=== PATIENT | male | born 1970 | race Caucasian/White ===

== ENCOUNTER 2017-05-29 19:19 | Inpatient (IN) | payer OTHER ==
--- NOTE | 2017-05-29 19:53 | ED ---
General Adult HPI - General Chief complaint: Skin/Abscess/Foreign Body Stated complaint: Abcess Rt leg Time Seen by Provider: 05/29/17 19:37 Source: patient, family, RN notes reviewed Mode of arrival: ambulatory Limitations: no limitations - History of Present Illness Initial comments: Chief complaint history of present illness is a 46-year-old male with his . The patient was at a local urgent care and placed on Bactrim one tablet twice a day for cellulitis to the medial aspect distal right thigh. He reports since that has doubled in size and become more tender. It has been ongoing for approximately one week. Patient's temperature 101 - Related Data Home Medications Medication Instructions Recorded Confirmed Sulfamethox-Tmp 800-160Mg [Bactrim 1 tab PO BID 05/29/17 05/29/17 DS 800-160 mg] Allergies Allergy/AdvReac Type Severity Reaction Status Date / Time No Known Allergies Allergy Verified 05/29/17 19:58 Review of Systems ROS Statement: Those systems with pertinent positive or pertinent negative responses have been documented in the HPI. Review of systems patient denies chills or shakes no headache no visual acuity changes no chest pain no shortness of breath no GI or problems. The patient does have eczema. Rather bad behind the proximal right calf. This may well be the source of his cellulitis to his medial distal right thigh. Patient denies ever having had MRSA in the past. All systems reviewed. Past medical problems COPD. Surgeries cardiac ablation for SVT 18 years ago with good success. Family history mother had bladder cancer. Patient denies ALLERGIES. He does smoke strongly encouraged to stop and he drinks alcohol socially. ROS Other: All systems not noted in ROS Statement are negative. Past Medical History Past Medical History: No Reported History Additional Past Medical History / Comment(s): SVT, BROKE A COLLAR BONE CHILD History of Any Multi-Drug Resistant Organisms: None Reported Past Surgical History: Ablation, Heart Catheterization Additional Past Surgical History / Comment(s): ABLATION IN 1998 Past Anesthesia/Blood Transfusion Reactions: No Reported Reaction Past Psychological History: ADD/ADHD, Anxiety, Depression, Panic Disorder Smoking Status: Current every day smoker Past Alcohol Use History: Occasional Past Drug Use History: None Reported - Past Family History Father Family Medical History: Hypertension Additional Family Medical History / Comment(s): ? HEART PROBLEMS Mother Family Medical History: Myocardial Infarction ([place]) Additional Family Medical History / Comment(s): AT AGE [address] General Exam - General Exam Comments Initial Comments: General: The patient is awake and alert, complaining of worsening cellulitis medial distal right thigh. Vital signs temperature 101 pulse 89 respiratory rate 20 pulse ox 98% room air blood pressure 168/72 Eye: Pupils are equal, round and reactive to light, extra-ocular movements are intact ; there is normal conjunctiva bilaterally. No signs of icterus. Ears, nose, mouth and throat: There are moist mucous membranes and no oral lesions. Neck: The neck is supple, Cardiovascular: There is a regular rate and rhythm. No murmur, rub or gallop is appreciated. Respiratory: Lungs are clear to auscultation, respirations are non-labored, breath sounds are equal. No wheezes, stridor, rales, or rhonchi. Gastrointestinal: Soft, non-distended, non-tender abdomen without masses or organomegaly noted. There is no rebound or guarding present. No CVA tenderness. Bowel sounds are unremarkable. Back: There is no tenderness to palpation in the midline. There is no obvious deformity. No rashes noted. Musculoskeletal: Red, hot, tender area distal medial right thigh. as well as a large area in the proximal posterior right calf and has eczema. Neurological: No complaint of any neuro deficits. Skin: The patient has eczema. It seems to be significantly irritated in the posterior aspect right calf and right popliteal area Limitations: no limitations Course Vital Signs 05/29/17 05/29/17 19:27 19:37 Temperature 98.9 F 101.1 F H Pulse Rate 89 Respiratory 20 Rate Blood Pressure 168/72 O2 Sat by Pulse 98 Oximetry Medical Decision Making - Medical Decision Making Medical decision making the patient's white count is 12.7 hemoglobin 14 hematocrit 41.9. Potassium 4.2 with a BUN 11 creatinine 0.91 and GFR greater than 60. Glucose 95. Patient's temperature 101.4 she received ibuprofen. The patient also received IV vancomycin. I discussed the case with Dr. Yeung, the patient's attending. Patient be admitted his service continued on vancomycin. - Lab Data Result diagrams: 05/29/17 20:08 05/29/17 20:08 Lab Results 05/29/17 05/29/17 Range/Units 20:08 20:08 WBC 12.7 H (3.8-10.6) k/uL RBC 4.63 (4.30-5.90) m/uL Hgb 14.5 (13.0-17.5) gm/dL Hct 41.9 (39.0-53.0) % MCV 90.6 (80.0-100.0) fL MCH 31.3 (25.0-35.0) pg MCHC 34.6 (31.0-37.0) g/dL RDW 12.9 (11.5-15.5) % Plt Count 249 (150-450) k/uL Neutrophils % 67 % Lymphocytes % 23 % Monocytes % 6 % Eosinophils % 2 % Basophils % 0 % Neutrophils # 8.5 H (1.3-7.7) k/uL Lymphocytes # 2.9 (1.0-4.8) k/uL Monocytes # 0.8 (0-1.0) k/uL Eosinophils # 0.2 (0-0.7) k/uL Basophils # 0.0 (0-0.2) k/uL Sodium 139 (137-145) mmol/L Potassium 4.2 (3.5-5.1) mmol/L Chloride 108 H (98-107) mmol/L Carbon Dioxide 21 L (22-30) mmol/L Anion Gap 10 mmol/L BUN 11 (9-20) mg/dL Creatinine 0.91 (0.66-1.25) mg/dL Est GFR (MDRD) Af Amer >60 (>60 ml/min/1.73 sqM) Est GFR (MDRD) Non-Af >60 (>60 ml/min/1.73 sqM) Glucose 95 (74-99) mg/dL Calcium 9.1 (8.4-10.2) mg/dL Total Bilirubin 0.2 (0.2-1.3) mg/dL AST 20 (17-59) U/L ALT 23 (21-72) U/L Alkaline Phosphatase 84 (38-126) U/L Total Protein 7.1 (6.3-8.2) g/dL Albumin 4.3 (3.5-5.0) g/dL Disposition Clinical Impression: Cellulitis of right leg Disposition: ADMITTED IP TO THIS HOSP Condition: Fair Referrals: Lukas Carlson Jr, DO [Primary Care Provider] - 1-2 days
[2017-05-29 20:28] LABS: Basophils % (A) 0 %; CH 32.7; CHCM 36.2; Eosinophils # (A) 0.2 k/uL (0-0.7); Eosinophils % (A) 2 %; HCT 41.9 % (39.0-53.0); HDW 2.33; HGB 14.5 gm/dL (13.0-17.5); Luc # (Auto) 0.29; Luc % (Auto) 2; Lymphocytes # (A) 2.9 k/uL (1.0-4.8); Lymphocytes % (A) 23 %; MCH 31.3 pg (25.0-35.0); MCHC 34.6 g/dL (31.0-37.0); MCV 90.6 fL (80.0-100.0); Mean Platelet Volume 7.5; Monocytes # (A) 0.8 k/uL (0-1.0); Monocytes % (A) 6 %; Neutrophils # (A) 8.5 k/uL (1.3-7.7); Neutrophils % (A) 67 %; RBC 4.63 m/uL (4.30-5.90); RDW 12.9 % (11.5-15.5); WBC 12.7 k/uL (3.8-10.6); WBC (Perox) 11.75
[2017-05-29 20:45] LABS: Anion Gap 10 mmol/L; Blood Urea Nitrogen 11 mg/dL (9-20); Carbon Dioxide 21 mmol/L (22-30); Chloride 108 mmol/L (98-107); Glucose 95 mg/dL (74-99); Potassium 4.2 mmol/L (3.5-5.1); Sodium 139 mmol/L (137-145)
[2017-05-29 20:46] LABS: ALT 23 U/L (21-72); AST 20 U/L (17-59); Alkaline Phosphatase 84 U/L (38-126); Calcium 9.1 mg/dL (8.4-10.2); Non-African American GFR(MDRD) >60 (>60 ml/min/1.73 sqM); Total Bilirubin 0.2 mg/dL (0.2-1.3); Total Protein 7.1 g/dL (6.3-8.2)
--- NOTE | 2017-05-29 20:53 | US ---
EXAMINATION TYPE: US venous doppler duplex LE RT DATE OF EXAM: 05/29/2017 8:38 PM COMPARISON: NONE CLINICAL HISTORY: Painful swelling distal medial right thigh. SIDE PERFORMED: Right TECHNIQUE: The lower extremity deep venous system is examined utilizing real time linear array sonog kareen with graded compression, doppler sonography and color-flow sonography. VESSELS IMAGED: External Iliac Vein (EIV) Common Femoral Vein Deep Femoral Vein Greater Saphenous Vein * Femoral Vein Popliteal Vein Small Saphenous Vein * Proximal Calf Veins (* superficial vessels) Right Leg: Negative for DVT No evidence of DVT right leg IMPRESSION: Normal exam. No evidence of deep venous thrombosis in the right leg.
[2017-05-29] MEDS ORDERED: IBUPROFEN 600 MG STARTER PACK 4 TAB BTL PO STA (21:39)
[2017-05-29] MEDS ORDERED: IV VANCOMYCIN PER PHARMACY 1 EACH MISC MISCELLANE PRN ×2 (21:39→22:27)
[2017-05-29] MEDS ORDERED: VANCOMYCIN 1,250 MG in SODIUM CHLORIDE 0.9% 250 ML IVPB ONE (22:00)
[2017-05-29] MEDS ORDERED: NALOXONE 0.4 MG/ML 1 ML VIAL IV PRN (22:27)
[2017-05-29] MEDS ORDERED: IBUPROFEN 400 MG TAB PO PRN (22:27)
[2017-05-29] MEDS ORDERED: HYDROcodone/APAP 5-325MG 1 EACH TAB PO PRN (22:27)
[2017-05-29] MEDS ORDERED: FAMOTIDINE 20 MG/2 ML VIAL IV STA (23:08)
[2017-05-29] MEDS ORDERED: diphenhydrAMINE 50 MG/ML 1 ML VIAL IVP STA ×2 (23:08→23:14)
[2017-05-29] MEDS: SODIUM CHLORIDE 0.9% 1,000 ML IV SCH (23:17)
[2017-05-29] MEDS: CLINDAMYCIN 600 MG in DEXTROSE 5% IN WATER 50 ML IVPB SCH ×2 (23:54)
[2017-05-30 05:19] VITALS: BMI 18.7
[2017-05-30] MEDS ORDERED: VANCOMYCIN 1,250 MG in SODIUM CHLORIDE 0.9% 250 ML IVPB SCH (08:00)
[2017-05-30] MEDS ORDERED: ONDANSETRON 4 MG/2 ML VIAL IVP PRN (08:37)
[2017-05-30] MEDS ORDERED: ACETAMINOPHEN TAB 325 MG TAB PO PRN (08:38)
[2017-05-30] MEDS: CLINDAMYCIN 600 MG in DEXTROSE 5% IN WATER 50 ML IVPB SCH ×6 (08:46→23:32)
[2017-05-30] MEDS: FAMOTIDINE 20 MG TAB PO SCH ×2 (11:19→20:11)
[2017-05-30] MEDS: SODIUM CHLORIDE 0.9% 1,000 ML IV SCH ×2 (11:20→20:11)
--- NOTE | 2017-05-30 11:29 | P.HPIM ---
History of Present Illness H&P Date: 05/30/17 Chief Complaint: Cellulitis This is a 46 year old male patient who presented to the ER on 05-29-17 due to increased pain, redness, and swelling of his right medial thigh. The patient states he went to urgent care about a week ago and was placed on Bactrim. He states the area continued to get more tender and increased in size and the swelling increased as well. He decided to come to the emergency room last night for evaluation. The patient has a history of COPD, heart ablation for SVT, and tobacco abuse. In the emergency room the patient was placed on vancomycin IV. During administration of the vancomycin the patient experienced an ALLERGIC reaction at the IV site. The patient was given Benadryl IV. Vancomycin was discontinued and the patient was started on IV clindamycin. The patient states his thigh feels much better today. He states the swelling has decreased. He also states the pain and tenderness has significantly decreased as well. He states he was able to walk this morning which he could barely do yesterday because of the pain. Review of Systems Those systems with pertinent positive or pertinent negative responses have been documented in the HPI Past Medical History Past Medical History: No Reported History Additional Past Medical History / Comment(s): SVT, BROKE A COLLAR BONE CHILD History of Any Multi-Drug Resistant Organisms: None Reported Past Surgical History: Ablation, Heart Catheterization Additional Past Surgical History / Comment(s): ABLATION IN 1998 Past Anesthesia/Blood Transfusion Reactions: No Reported Reaction Past Psychological History: ADD/ADHD, Anxiety, Depression, Panic Disorder Additional Psychological History / Comment(s): TOOK PAXIL IN PAST Smoking Status: Current every day smoker Past Alcohol Use History: Occasional Additional Past Alcohol Use History / Comment(s): STARTED SMOKING AT AGE 15 1PPD , DRINKS ON WEEKENDS NOT MORE THAN 14 Past Drug Use History: None Reported - Past Family History Father Family Medical History: Hypertension Additional Family Medical History / Comment(s): ? HEART PROBLEMS Mother Family Medical History: Myocardial Infarction ([place]) Additional Family Medical History / Comment(s): AT AGE 63 MASSIVE [place] Medications and Allergies Home Medications Medication Instructions Recorded Confirmed Type Sulfamethox-Tmp 800-160Mg [Bactrim 1 tab PO BID 05/29/17 05/29/17 History DS 800-160 mg] Allergies Allergy/AdvReac Type Severity Reaction Status Date / Time vancomycin Allergy Intermediate Rash/Hives Verified 05/29/17 23:40 Physical Exam Vitals: Vital Signs Temp Pulse Pulse Resp BP BP Pulse Ox 05/30/17 08:50 69 16 05/30/17 07:55 97.8 F 69 16 110/67 97 05/30/17 00:00 16 05/29/17 23:50 97.9 F 57 L 16 106/59 97 05/29/17 23:41 98.9 F 73 16 150/68 98 05/29/17 19:37 101.1 F H 05/29/17 19:27 98.9 F 89 20 168/72 98 Intake and Output 05/29/17 05/30/17 05/30/17 22:59 06:59 14:59 Intake Total 300 Balance 300 Intake: Intake, IV Titration 240 Amount Sodium Chloride 0.9% 1, 240 000 ml @ 80 mls/hr IV . [id number] [facility] Rx#:[id number] Oral 60 Other: Weight 68.039 kg 68.039 kg Patient Weight 05/31/17 06:59 Weight 68.039 kg GENERAL: Alert and oriented. Appears in no acute distress. Pleasant. RESPIRATORY: Lungs clear bilaterally. No use of accessory muscles. Patient maintaining oxygen saturation greater than 92% on room air. CARDIOVASCULAR: S1 and S2 noted. No murmurs auscultated. No JVD noted. EXTREMITIES: No edema noted. Palpable pedal pulses +2. ABDOMEN: No distention noted. Abdomen soft and round. Normal active bowel sounds auscultated 4 quadrants. No pain or tenderness noted upon palpation. SKIN: Large reddened, warm area to right medial thigh. No drainage present. Slight tenderness noted to area upon palpation. Results CBC & Chem 7: 05/29/17 20:08 05/29/17 20:08 Labs: Abnormal Lab Results - Last 24 Hours (Table) 05/29/17 05/29/17 Range/Units 20:08 20:08 WBC 12.7 H (3.8-10.6) k/uL Neutrophils # 8.5 H (1.3-7.7) k/uL Chloride 108 H (98-107) mmol/L Carbon Dioxide 21 L (22-30) mmol/L Thrombosis Risk Factor Assmnt - Choose All That Apply Any of the Below Risk Factors Present?: Yes Each Factor Represents 1 point: Age 41-60 years Other Risk Factors: No Other congenital or acquired thrombophilia - If yes, enter type in comment: No Thrombosis Risk Factor Assessment Total Risk Factor Score: 1 Thrombosis Risk Factor Assessment Level: Low Risk Assessment and Plan Plan: ASSESSMENT: -Cellulitis of right thigh, present on admission, failed outpatient treatment -ALLERGIC reaction to vancomycin as patient developed rash/hives upon administration -History of supraventricular tachycardia, status post cardiac ablation in 1998 -Leukocytosis and febrile, present on admission, likely due to cellulitis of right thigh, meets SIRS criteria, possible early sepsis -History of COPD, no evidence of acute exacerbation -Nicotine dependence: Patient currently smokes cigarettes PLAN: -Continue clindamycin 600 mg IVPB every 8 hours -There are no home meds to resume -Continue IV hydration at 80 mL an hour -Continue heart healthy diet -Await results of blood cultures -Monitor labs. Will recheck in the AM. -GI prophylaxis: Pepcid 20 mg by mouth twice a day -DVT prophylaxis: Heparin 5000 units subcu every 8 hours -Monitor vital signs and address as appropriate The above impression and plan of care have been discussed and directed by signing physician. Roya Cornejo, nurse practitioner, acting as scribe for signing physician.
[2017-05-30] MEDS: HEPARIN SODIUM,PORCINE 5,000 UNIT/ML 1 ML VIAL SQ SCH ×2 (17:02→23:33)
[2017-05-31 07:13] LABS: Basophils % (A) 0 %; CH 31.7; CHCM 34.5; Eosinophils # (A) 0.3 k/uL (0-0.7); Eosinophils % (A) 3 %; HCT 41.7 % (39.0-53.0); HDW 2.46; HGB 14.2 gm/dL (13.0-17.5); Luc # (Auto) 0.24; Luc % (Auto) 3; Lymphocytes # (A) 2.1 k/uL (1.0-4.8); Lymphocytes % (A) 27 %; MCH 31.3 pg (25.0-35.0); MCV 92.1 fL (80.0-100.0); Mean Platelet Volume 7.1; Monocytes # (A) 0.5 k/uL (0-1.0); Monocytes % (A) 6 %; Neutrophils # (A) 4.7 k/uL (1.3-7.7); Neutrophils % (A) 60 %; RBC 4.53 m/uL (4.30-5.90); RDW 12.1 % (11.5-15.5); WBC 7.8 k/uL (3.8-10.6); WBC (Perox) 8.22
[2017-05-31 07:28] LABS: Anion Gap 9 mmol/L; Blood Urea Nitrogen 11 mg/dL (9-20); Calcium 9.5 mg/dL (8.4-10.2); Carbon Dioxide 22 mmol/L (22-30); Chloride 107 mmol/L (98-107); Glucose 95 mg/dL (74-99); Non-African American GFR(MDRD) >60 (>60 ml/min/1.73 sqM); Sodium 138 mmol/L (137-145)
[2017-05-31 07:46] VITALS: BP 125/67; PULSE 52; RESP 18; TEMP 98.4
[2017-05-31 07:46] LABS: Potassium 4.5 mmol/L (3.5-5.1)
[2017-05-31] MEDS: FAMOTIDINE 20 MG TAB PO SCH (08:33)
[2017-05-31] MEDS: CLINDAMYCIN 600 MG in DEXTROSE 5% IN WATER 50 ML IVPB SCH ×2 (08:33)
[2017-05-31] MEDS: HEPARIN SODIUM,PORCINE 5,000 UNIT/ML 1 ML VIAL SQ SCH (08:33)
--- NOTE | 2017-05-31 11:47 | P.DS ---
Providers Date of admission: 05/29/17 22:30 Expected date of discharge: 05/31/17 Attending physician: Lukas Carlson Primary care physician: Lukas Carlson [facility] Course: She was admitted with cellulitis to the medial aspect of the right thigh he's received IV antibiotic therapy for approximately 48 hours this is all but resolved General: [Patient awake, alert and oriented times 3. Patient in no acute distress.] HEENT: [PERRL. EOMI. No pharyngeal erythema or exudate.] Neck: [No adenopathy.] Cardiac: [Heart regular in rate and rhythm. No S3. No S4. No clicks, rubs. No murmur.] Lungs: [Clear to auscultation bilaterally.] Abdomen: [No mass. No organomegaly. Bowel sounds presnt and normoactive in all 4 quadrants.] Extremes: [No edema no cyanosis no claudication normal pulses] mild patch of cellulitis approximately half centimeter by centimeter with no evidence of abscess : [] Musculoskeletal: [No joint erythema, edema or tenderness.] Skin: [No rash.] Neurologic: [No lateralizing deficits. CN II - XII grossly intact.] Lymphatic: [No adenopathy.] Patient Condition at Discharge: Good Plan - Discharge Summary New Discharge Prescriptions: New Clindamycin HCl [Cleocin] 300 mg PO Q8H #30 cap No Action Sulfamethox-Tmp 800-160Mg [Bactrim DS 800-160 mg] 1 tab PO BID Discharge Medication List Sulfamethox-Tmp 800-160Mg [Bactrim DS 800-160 mg] 1 tab PO BID 05/29/17 [History ] Clindamycin HCl [Cleocin] 300 mg PO Q8H #30 cap 05/31/17 [Rx] Follow up Appointment(s)/Referral(s): Lukas Carlson Jr, [Primary Care Provider] - 1-2 days
== END 2017-05-31 13:20 | disposition home or self-care (01) | DRG 603 ==
LOC: EC 19:19 → 5MS5E 22:30
PROVIDERS: ADMIT Family Medicine; ATTEND Family Medicine
DX: L03.115 Cellulitis of right lower limb (principal); T36.8X5A Adverse effect of other systemic antibiotics, initial encounter; R21 Rash and other nonspecific skin eruption; J44.9 Chronic obstructive pulmonary disease, unspecified; F17.210 Nicotine dependence, cigarettes, uncomplicated; F41.0 Panic disorder [episodic paroxysmal anxiety]; F90.9 Attention-deficit hyperactivity disorder, unspecified type; Y92.230 Patient room in hospital as the place of occurrence of the external cause
CPT/HCPCS: 36415; 80048; 80053; 85025; 87040; 96365; 96375; 99284

== ENCOUNTER 2017-09-24 20:33 | Emergency (ER) | payer OTHER ==
[2017-09-24] MEDS ORDERED: DIPH,PERTUS(ACELL)TETVAC-LF 0.5 ML VIAL IM ONE (20:44)
--- NOTE | 2017-09-24 21:03 | XR ---
PROCEDURE: XR hand complete LT 3 views DATE AND TIME: 09/24/2017 8:54 PM REFERRING PHYSICIAN: Charo Bhatt CLINICAL INDICATION: PHH, Pain. Cystic Knipe first digit laceration. TECHNIQUE: Department protocol. COMPARISON: None FINDINGS: There is no fracture or malalignment. The soft tissues are unremarkable, without soft tissu e emphysema or radiopaque foreign body. IMPRESSION: NO ACUTE PROCESS.
--- NOTE | 2017-09-24 21:05 | ED ---
General Adult HPI - General Chief complaint: Wound/Laceration Stated complaint: hand lac Time Seen by Provider: 09/24/17 20:40 Source: patient, RN notes reviewed Mode of arrival: ambulatory - History of Present Illness Initial comments: 47-year-old male presents to the emergency department with a chief complaint of left hand laceration from a knife trying to break it's 20 time. He does not recall his last tetanus. He states he has some pain to that finger. Full range of motion. Patient denies any other concerns at this time. He was concerned due to the cut so he thought that he should be. Patient denies any recent fever, chills, shortness of breath, chest pain, back pain, abdominal pain , nausea vomiting, numbness or tingling, dysuria or hematuria, constipation or diarrhea, headaches or visual changes, or any other current symptoms. - Related Data Previous Rx's Medication Instructions Recorded Cephalexin [Keflex] 500 mg PO Q6HR #40 cap 09/24/17 Allergies Allergy/AdvReac Type Severity Reaction Status Date / Time vancomycin Allergy Intermediate Rash/Hives Verified 09/24/17 20:48 Review of Systems ROS Statement: Those systems with pertinent positive or pertinent negative responses have been documented in the HPI. ROS Other: All systems not noted in ROS Statement are negative. Past Medical History Past Medical History: No Reported History Additional Past Medical History / Comment(s): SVT, BROKE A COLLAR BONE CHILD History of Any Multi-Drug Resistant Organisms: None Reported Past Surgical History: Ablation, Heart Catheterization Additional Past Surgical History / Comment(s): ABLATION IN 1998 Past Anesthesia/Blood Transfusion Reactions: No Reported Reaction Past Psychological History: ADD/ADHD, Anxiety, Depression, Panic Disorder Smoking Status: Current every day smoker Past Alcohol Use History: Occasional Past Drug Use History: None Reported - Past Family History Father Family Medical History: Hypertension Additional Family Medical History / Comment(s): ? HEART PROBLEMS Mother Family Medical History: Myocardial Infarction ([place]) Additional Family Medical History / Comment(s): AT AGE 63 MASSIVE [place] General Exam - General Exam Comments Initial Comments: General: The patient is awake and alert, in no distress, and does not appear acutely ill. Neck: The neck is supple, there is no tenderness. Cardiovascular: There is a regular rate and rhythm. No murmur, rub or gallop is appreciated. Respiratory: Lungs are clear to auscultation, respirations are non-labored, breath sounds are equal. No wheezes, stridor, rales, or rhonchi. Musculoskeletal: Sensation intact with 2+ pulses throughout the left upper x- ray. Fund motion of left hand. Patient has good strength of the left first digit. There is appear to be a large laceration. Does appear to be tendon exposed without any deep tendon injury. 5 out of 5 muscle strength testing. Neurological: CN II-XII intact, There are no obvious motor or sensory deficits. Coordination appears grossly intact. Speech is normal. Skin: Skin is warm and dry and no rashes or lesions are noted. Psychiatric: Normal mood and affect. Course Vital Signs 09/24/17 20:34 Temperature 97.3 F L Pulse Rate 65 Respiratory 17 Rate Blood Pressure 134/73 O2 Sat by Pulse 100 Oximetry Procedures - Procedures Initial comment: The skin was anesthetized with 1% lidocaine. The laceration was then cleansed with Betadine and irrigated with normal saline. The wound was inspected, and there is appear to be a partial tendon laceration. No foreign body was noted in the wound. A total of 7 skin sutures were placed utilizing low nylon to 5 cm left thumb laceration - Orthopedic Splinting/Casting Injury #1 Side: left Upper Extremity Injury Location: finger Upper Extremity Immobilizer: ulnar gutter (Short arm) Medical Decision Making - Medical Decision Making 47-year-old male presents for left thumb laceration. At this time patient underwent suture care and we reviewed his x-rays. We did discuss that does appear to be some tendon injury however his strength is intact. We discussed close follow-up with [facility]. We did start him on antibiotics. We discussed return parameters all questions. Patient stated he understood he is given this plan. He will be discharged. - Radiology Data Radiology results: report reviewed, image reviewed Disposition Clinical Impression: Laceration of left thumb with tendon involvement Disposition: HOME SELF-CARE Condition: Stable Instructions: Laceration (ED), Care For Your Stitches (ED) Additional Instructions: Please use medication as discussed. Please follow up with family doctor if symptoms have not improved over the next two days. Please return to the emergency room if your symptoms increase or worsen or for any other concerns. Prescriptions: Cephalexin [Keflex] 500 mg PO Q6HR #40 cap Referrals: Lukas Carlson Jr, DO [Primary Care Provider] - 1-2 days Milan Love DO [Doctor of Osteopathic Medicine] - 1-2 days Time of Disposition: 21:33
[2017-09-24] MEDS ORDERED: ceFAZolin 1,000 MG VIAL IM STA (21:34)
[2017-09-24 22:08] VITALS: BP 136/63; PULSE 63; RESP 18; TEMP 97.9
== END 2017-09-24 22:15 | disposition home or self-care (01) ==
LOC: EC 20:33
DX: S61.012A Laceration without foreign body of left thumb without damage to nail, initial encounter (principal); F17.200 Nicotine dependence, unspecified, uncomplicated; Z88.1 Allergy status to other antibiotic agents; Z23 Encounter for immunization; W26.0XXA Contact with knife, initial encounter; Y92.009 Unspecified place in unspecified non-institutional (private) residence as the place of occurrence of the external cause
CPT/HCPCS: 73130; 90715; 99283; 12002; 96372; 90471; J0690

== ENCOUNTER 2020-12-26 17:45 | Emergency (ER) | payer OTHER ==
[2020-12-26 18:25] VITALS: TEMP 97.6
[2020-12-26 19:09] LABS: Basophils # (A) 0.1 k/uL (0-0.2); Basophils % (A) 1 %; Eosinophils # (A) 0.2 k/uL (0-0.7); Eosinophils % (A) 2 %; HCT 43.8 % (39.0-53.0); HGB 14.6 gm/dL (13.0-17.5); Lymphocytes # (A) 2.7 k/uL (1.0-4.8); Lymphocytes % (A) 29 %; MCH 30.4 pg (25.0-35.0); MCHC 33.5 g/dL (31.0-37.0); MCV 90.9 fL (80.0-100.0); Mean Platelet Volume 7.3; Monocytes # (A) 0.5 k/uL (0-1.0); Monocytes % (A) 5 %; Neutrophils # (A) 5.6 k/uL (1.3-7.7); Neutrophils % (A) 61 %; Platelet Count 300 k/uL (150-450); RBC 4.81 m/uL (4.30-5.90); RDW 12.5 % (11.5-15.5); WBC 9.2 k/uL (3.8-10.6)
[2020-12-26 19:19] LABS: INR 0.9 (<1.2); Partial Thromboplastin Time 22.7 sec (22.0-30.0); Prothrombin Time 10.1 sec (9.0-12.0)
[2020-12-26 19:25] LABS: ALT 16 U/L (4-49); AST 25 U/L (17-59); African American GFR (CKD) >90 (>60 ml/min/1.73 sqM); Albumin 4.2 g/dL (3.5-5.0); Alkaline Phosphatase 72 U/L (38-126); Anion Gap 10 mmol/L; Blood Urea Nitrogen 15 mg/dL (9-20); Calcium 9.7 mg/dL (8.4-10.2); Carbon Dioxide 23 mmol/L (22-30); Chloride 106 mmol/L (98-107); Glucose 103 mg/dL (74-99); Non-African American GFR(CKD) >90 (>60 ml/min/1.73 sqM); Potassium 4.1 mmol/L (3.5-5.1); Sodium 139 mmol/L (137-145); Total Bilirubin 0.2 mg/dL (0.2-1.3); Total Protein 6.5 g/dL (6.3-8.2)
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
--- NOTE | 2020-12-26 20:04 | XR ---
EXAMINATION TYPE: XR chest 2V DATE OF EXAM: 12/26/2020 COMPARISON: NONE HISTORY: Chest pain. Heart racing. TECHNIQUE: 2 views FINDINGS: Heart and mediastinum are normal. Lungs are clear. Diaphragm is normal. The thorax is intac t. There are chest leads. Pulmonary vascularity is normal. IMPRESSION: Normal chest. No change.
[2020-12-26 21:13] VITALS: BP 129/80; PULSE 47; RESP 18
== END 2020-12-26 21:13 | disposition home or self-care (01) ==
LOC: EC 17:45
DX: R00.2 Palpitations (principal); F41.9 Anxiety disorder, unspecified; F32.9 Major depressive disorder, single episode, unspecified; F17.200 Nicotine dependence, unspecified, uncomplicated
CPT/HCPCS: 36415; 71046; 80053; 83735; 84484; 85025; 85610; 85730; 93005; 99285

== ENCOUNTER 2021-08-31 17:34 | Emergency (ER) | payer MEDICAID, OTHER ==
[2021-08-31 17:46] VITALS: BP 142/71; PULSE 77; RESP 16; TEMP 98.1
[2021-08-31 18:31] LABS: Appearance,Urine Clear (Clear); Bilirubin,Urine Negative (Negative); Blood,Urine Negative (Negative); Color,Urine Yellow; Glucose,Urine (UA) Negative (Negative); Ketones,Urine Negative (Negative); Leukocyte Esterase,Urine Negative (Negative); Nitrite,Urine Negative (Negative); PH, Urine 6.5 (5.0-8.0); Protein,Urine Negative (Negative); Urobilinogen,Urine <2.0 mg/dL (<2.0)
[2021-08-31 18:51] LABS: Amphetamine Screen,Urine Not Detected (NotDetected); Barbiturate Screen,Urine Not Detected (NotDetected); Benzodiazepines Screen,Urine Not Detected (NotDetected); Cocaine Screen,Urine Not Detected (NotDetected); Methadone Screen, Urine Not Detected (NotDetected); Opiate Screen,Urine Not Detected (NotDetected); Oxycodone Screen, Urine Not Detected (NotDetected); Phencyclidine Screen,Urine Not Detected (NotDetected); Tricyclic Antidepressant,Urine Not Detected (NotDetected); Urn Cannabinoid Scrn Not Detected (NotDetected)
[2021-08-31 20:05] LABS: Basophils # (A) 0.1 k/uL (0-0.2); Basophils % (A) 0 %; Eosinophils # (A) 0.1 k/uL (0-0.7); Eosinophils % (A) 0 %; HCT 40.7 % (39.0-53.0); HGB 14.2 gm/dL (13.0-17.5); Lymphocytes # (A) 2.3 k/uL (1.0-4.8); Lymphocytes % (A) 11 %; MCH 32.1 pg (25.0-35.0); MCHC 34.8 g/dL (31.0-37.0); Mean Platelet Volume 7.6; Monocytes # (A) 0.9 k/uL (0-1.0); Monocytes % (A) 4 %; Neutrophils # (A) 17.7 k/uL (1.3-7.7); Neutrophils % (A) 84 %; Platelet Count 344 k/uL (150-450); RBC 4.42 m/uL (4.30-5.90); WBC 21.2 k/uL (3.8-10.6)
[2021-08-31 20:12] LABS: Potassium 4.1 mmol/L (3.5-5.1)
[2021-08-31 20:14] LABS: AST 27 U/L (17-59); African American GFR (CKD) >90 (>60 ml/min/1.73 sqM); Albumin 3.8 g/dL (3.5-5.0); Alkaline Phosphatase 77 U/L (38-126); Anion Gap 9 mmol/L; Blood Urea Nitrogen 7 mg/dL (9-20); Calcium 8.9 mg/dL (8.4-10.2); Carbon Dioxide 21 mmol/L (22-30); Chloride 109 mmol/L (98-107); Glucose 96 mg/dL (74-99); Non-African American GFR(CKD) >90 (>60 ml/min/1.73 sqM); Sodium 139 mmol/L (137-145); Total Bilirubin 0.3 mg/dL (0.2-1.3); Total Protein 6.4 g/dL (6.3-8.2)
[2021-08-31 20:15] LABS: ALT 14 U/L (4-49)
--- NOTE | 2021-08-31 20:16 | XR ---
EXAMINATION TYPE: XR chest 2V DATE OF EXAM: 08/31/2021 7:43 PM COMPARISON: Radiograph 12/26/2020 CLINICAL INDICATION:Male, 51 years old with history of altered mental status, TECHNIQUE: Frontal, digital subtraction and lateral views of the chest. FINDINGS: Lungs/Pleura: There is no evidence of pleural effusion, focal consolidation, or pneumothorax. Pulmonary vascularity: Unremarkable. Heart/mediastinum: Cardiomediastinal silhouette is unremarkable. Musculoskeletal: No acute osseous pathology. IMPRESSION: No acute cardiopulmonary disease/process.
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
== END 2021-08-31 21:45 | disposition home or self-care (01) ==
LOC: EC 17:34 → 3MHU 18:45 → UNDOADMIN 18:45 → EC 21:45
DX: R05.9 Cough, unspecified (principal); R06.02 Shortness of breath; F17.200 Nicotine dependence, unspecified, uncomplicated; Z88.1 Allergy status to other antibiotic agents; Z20.822 Contact with and (suspected) exposure to COVID-19
CPT/HCPCS: 36415; 71046; 80053; 80306; 81003; 82075; 85025; 87635; 99285

== ENCOUNTER 2023-08-15 06:26 | Inpatient (IN) | payer MEDICAID, OTHER ==
[2023-08-15] MEDS ORDERED: LORazepam 2 MG/ML INJ IV PRN (07:21)
[2023-08-15] MEDS ORDERED: NICOTINE 14MG/24HR PATCH TRANSDERM STA (07:48)
--- NOTE | 2023-08-15 09:07 | ED ---
Psych HPI - General Chief Complaint: Psychiatric Symptoms Stated Complaint: mental health Time Seen by Provider: 08/15/23 07:00 Source: EMS Mode of arrival: EMS - History of Present Illness Initial Comments: 53-year-old male presents to the emergency department reporting suicidal ideations. Patient states that he drinks a fifth of alcohol daily. He was drinking last night. He told his roommate that he wanted to kill himself. He has been depressed since his left him. Patient denies harming himself but states that if he did have access to a gun that he would shoot himself in the head. He denies homicidal ideations. No drug use. Denies previous history of suicide attempts. No other alleviating, precipitating modifying factors - Related Data Home Medications Medication Instructions Recorded Confirmed FLUoxetine HCL [PROzac] 20 mg PO DAILY 08/15/23 08/15/23 Secukinumab [Cosentyx Sensoready 300 mg SQ DIRECTED 08/15/23 08/15/23 (2 Pens)] Triamcinolone 0.1% Cream [Kenalog 1 applic TOPICAL BID 08/15/23 08/15/23 0.1% Cream] hydrOXYzine pamoate [Vistaril] 50 mg PO TID 08/15/23 08/15/23 Allergies Allergy/AdvReac Type Severity Reaction Status Date / Time vancomycin Allergy Intermediate Rash/Hives Verified 08/15/23 13:16 Review of Systems ROS Statement: Those systems with pertinent positive or pertinent negative responses have been documented in the HPI. ROS Other: All systems not noted in ROS Statement are negative. Past Medical History Past Medical History: No Reported History Additional Past Medical History / Comment(s): SVT, BROKE A COLLAR BONE CHILD History of Any Multi-Drug Resistant Organisms: None Reported Past Surgical History: Ablation, Heart Catheterization Additional Past Surgical History / Comment(s): ABLATION IN 1998 Past Anesthesia/Blood Transfusion Reactions: No Reported Reaction Past Psychological History: ADD/ADHD, Anxiety, Depression, Panic Disorder Smoking Status: Current every day smoker Past Alcohol Use History: Abuse, Daily Past Drug Use History: None Reported - Past Family History Father Family Medical History: Hypertension Additional Family Medical History / Comment(s): ? HEART PROBLEMS Mother Family Medical History: Myocardial Infarction ([place]) Additional Family Medical History / Comment(s): AT AGE 63 MASSIVE [place] General Exam General appearance: alert, appears intoxicated Head exam: Present: atraumatic, normocephalic, normal inspection Eye exam: Present: normal appearance, PERRL, EOMI. Absent: scleral icterus, conjunctival injection, periorbital swelling ENT exam: Present: normal exam, mucous membranes moist Neck exam: Present: normal inspection. Absent: tenderness, meningismus, lymphadenopathy Respiratory exam: Present: normal lung sounds bilaterally. Absent: respiratory distress, wheezes, rales, rhonchi, stridor Cardiovascular Exam: Present: regular rate, normal rhythm, normal heart sounds. Absent: systolic murmur, diastolic murmur, rubs, gallop, clicks GI/Abdominal exam: Present: soft, normal bowel sounds. Absent: distended, tenderness, guarding, rebound, rigid Extremities exam: Present: normal inspection, full ROM, normal capillary refill. Absent: tenderness, pedal edema, joint swelling, calf tenderness Back exam: Present: normal inspection Neurological exam: Present: alert, altered, CN II-XII intact Psychiatric exam: Present: depressed, suicidal ideation Skin exam: Present: warm, dry, intact, normal color. Absent: rash Course Vital Signs 08/15/23 08/15/23 06:31 21:20 Temperature 97.9 F 98.7 F Pulse Rate 92 76 Respiratory 18 16 Rate Blood Pressure 135/86 131/72 O2 Sat by Pulse 99 98 Oximetry Medical Decision Making - Medical Decision Making Was pt. sent in by a medical professional or institution (, PA, REFERRAL MANAGEMENT LIAISON, urgent care, hospital, or detention...) When possible be specific @ -No Did you speak to anyone other than the patient for history (EMS, parent, family, police, friend...)? What history was obtained from this source @ -Spoke with EMS Did you review nursing and triage notes (agree or disagree)? Why? @ -I reviewed and agree with nursing and triage notes Were old charts reviewed (outside hosp., previous admission, EMS record, old EKG, old radiological studies, urgent care reports/EKG's, detention records)? Report findings @ -No old charts were reviewed Differential Diagnosis (chest pain, altered mental status, abdominal pain women, abdominal pain men, vaginal bleeding, weakness, fever, dyspnea, syncope, headache, dizziness, GI bleed, back pain, seizure, CVA, palpatations, mental health, musculoskeletal)? @ -Differential Mental Health Depression, anxiety, bipolar, psychosis, schizophrenia, borderline personality, situational depression, adjustment disorder, behavioral disorder, brain tumor, malingering, substance abuse, encephalopathy, medication reaction, dementia, hypothyroidism, degenerative neurologic disorder, lupus.... This is not meant to be all-inclusive list EKG interpreted by me (3pts min.). @ -Not done X-rays interpreted by me (1pt min.). @ -None done CT interpreted by me (1pt min.). @ -None done U/S interpreted by me (1pt. min.). @ -None done What testing was considered but not performed or refused? (CT, X-rays, U/S, labs)? Why? @ -None What meds were considered but not given or refused? Why? @ -None Did you discuss the management of the patient with other professionals (professionals i.e. , PA, REFERRAL MANAGEMENT LIAISON, lab, RT, psych nurse, social security benefits interviewer, mechanical research engineer, teacher, ecological technical officer, rn case mgr)? Give summary @ -Spoke with the EPS - David - will evaluate the patient Was smoking cessation discussed for >3mins.? @ -No Was critical care preformed (if so, how long)? @ -No Were there social determinants of health that impacted care today? How? (Homelessness, low income, unemployed, alcoholism, drug addiction, transportation, low edu. Level, literacy, decrease access to med. care, prison, rehab)? @ -No Was there de-escalation of care discussed even if they declined (Discuss DNR or withdrawal of care, Hospice)? DNR status @ -No What co-morbidities impacted this encounter? (DM, HTN, Smoking, COPD, CAD, Cancer, CVA, ARF, Chemo, Hep., AIDS, mental health diagnosis, sleep apnea, morbid obesity)? @ -Alcohol abuse Was patient admitted / discharged? Hospital course, mention meds given and route, prescriptions, significant lab abnormalities, going to OR and other pertinent info. @ -Upon arrival patient was placed in room 13. A thorough history and physical exam was performed. Patient intoxicated with a level CCXL. Will require sobriety for repeat evaluation. Patient will be sober at 3:40 PM and will be evaluated by EPS at that time Undiagnosed new problem with uncertain prognosis? @ -Yes Drug Therapy requiring intensive monitoring for toxicity (Heparin, Nitro, Insulin, Cardizem)? @ -No Were any procedures done? @ -No Diagnosis/symptom? @ -Acute alcohol intoxication, acute depression Acute, or Chronic, or Acute on Chronic? @ -Acute Uncomplicated (without systemic symptoms) or Complicated (systemic symptoms)? @ -Complicated Side effects of treatment? @ -No Exacerbation, Progression, or Severe Exacerbation? @ -No Poses a threat to life or bodily function? How? (Chest pain, [place], [place], pneumonia, PE, COPD, DKA, ARF, appy, cholecystitis, CVA, Diverticulitis, Homicidal, Suicidal, threat to staff... and all critical care pts) @ -Yes patient reports suicidal ideations - Lab Data Lab Results 08/15/23 08/15/23 Range/Units 17:05 19:39 Urine Color Yellow Urine Appearance Clear (Clear) Urine pH 5.0 (5.0-8.0) Ur Specific [place] 1.025 (1.001-1.035) Urine Protein Negative (Negative) Urine Glucose (UA) Negative (Negative) Urine Ketones Negative (Negative) Urine Blood Negative (Negative) Urine Nitrite Negative (Negative) Urine Bilirubin Negative (Negative) Urine Urobilinogen <0.2 (<2.0) mg/dL Ur Leukocyte Esterase Negative (Negative) Urine Opiates Screen Not Detected (NotDetected) Ur Oxycodone Screen Not Detected (NotDetected) Urine Methadone Screen Not Detected (NotDetected) Ur Propoxyphene Screen Not Detected (NotDetected) Ur Barbiturates Screen Not Detected (NotDetected) U Tricyclic Antidepress Not Detected (NotDetected) Ur Phencyclidine Scrn Not Detected (NotDetected) Ur Amphetamines Screen Not Detected (NotDetected) U Methamphetamines Scrn Not Detected (NotDetected) U Benzodiazepines Scrn Detected H (NotDetected) Urine Cocaine Screen Not Detected (NotDetected) U Marijuana (THC) Screen Not Detected (NotDetected) SARS-CoV-2 (PCR) Not Detected (Not Detectd) Disposition Clinical Impression: Depression, Alcohol intoxication, Suicidal ideation Disposition: TRANSFER TO PSYCH HOSP/UNIT Condition: Stable Is patient prescribed a controlled substance at d/c from ED?: No
[2023-08-15 18:11] LABS: Amphetamine Screen,Urine Not Detected (NotDetected); Barbiturate Screen,Urine Not Detected (NotDetected); Benzodiazepines Screen,Urine Detected (NotDetected); Cocaine Screen,Urine Not Detected (NotDetected); Methadone Screen, Urine Not Detected (NotDetected); Opiate Screen,Urine Not Detected (NotDetected); Oxycodone Screen, Urine Not Detected (NotDetected); Phencyclidine Screen,Urine Not Detected (NotDetected); Tricyclic Antidepressant,Urine Not Detected (NotDetected); Urn Cannabinoid Scrn Not Detected (NotDetected)
[2023-08-15 18:14] LABS: Appearance,Urine Clear (Clear); Color,Urine Yellow
[2023-08-15 18:15] LABS: Bilirubin,Urine Negative (Negative); Blood,Urine Negative (Negative); Glucose,Urine (UA) Negative (Negative); Ketones,Urine Negative (Negative); Protein,Urine Negative (Negative); Specific Gravity,Urine 1.025 (1.001-1.035)
[2023-08-15 18:16] LABS: Leukocyte Esterase,Urine Negative (Negative); Nitrite,Urine Negative (Negative); Urobilinogen,Urine <0.2 mg/dL (<2.0)
[2023-08-15] MEDS ORDERED: MAG HYDROX/AL HYDROX/SIMETH 30 ML CUP PO PRN (22:29)
[2023-08-15] MEDS ORDERED: ACETAMINOPHEN TAB 325 MG TAB PO PRN (22:29)
[2023-08-15] MEDS ORDERED: IBUPROFEN 600 MG TAB PO PRN (22:29)
[2023-08-15] MEDS ORDERED: LORazepam 2 MG/ML INJ IM PRN (22:29)
[2023-08-15] MEDS ORDERED: MAGNESIUM HYDROXIDE 2,400 MG/30 ML CUP PO PRN (22:29)
[2023-08-15] MEDS ORDERED: LORazepam 1 MG TAB PO PRN ×3 (22:29)
[2023-08-16] MEDS ORDERED: FLUoxetine HCL 20 MG CAP PO SCH (09:00)
[2023-08-16] MEDS ORDERED: traZODone HCL 50 MG TAB PO PRN (10:09)
--- NOTE | 2023-08-16 10:11 | P.HP ---
Psychiatric H&P - . H&P Date: 08/16/23 History & Physical: Allergies Allergy/AdvReac Type Severity Reaction Status Date / Time vancomycin Allergy Intermediate Rash/Hives Verified 08/16/23 02:39 Vital Signs Temp 98.1 F 08/15/23 22:56 Pulse 73 08/15/23 22:56 Resp 18 08/15/23 22:56 BP 129/76 08/15/23 22:56 Pulse Ox 98 08/15/23 22:56 FiO2 Intake & Output 08/15/23 08/16/23 08/16/23 18:59 06:59 18:59 Weight 64.9 kg Laboratory Last Values Urine Color Yellow 08/15/23 17:05 Urine Appearance Clear (Clear) 08/15/23 17:05 Urine pH 5.0 (5.0-8.0) 08/15/23 17:05 Ur Specific [place] 1.025 (1.001-1.035) 08/15/23 17:05 Urine Protein Negative (Negative) 08/15/23 17:05 Urine Glucose (UA) Negative (Negative) 08/15/23 17:05 Urine Ketones Negative (Negative) 08/15/23 17:05 Urine Blood Negative (Negative) 08/15/23 17:05 Urine Nitrite Negative (Negative) 08/15/23 17:05 Urine Bilirubin Negative (Negative) 08/15/23 17:05 Urine Urobilinogen <0.2 mg/dL (<2.0) 08/15/23 17:05 Ur Leukocyte Esterase Negative (Negative) 08/15/23 17:05 Urine Opiates Screen Not Detected (NotDetected) 08/15/23 17:05 Ur Oxycodone Screen Not Detected (NotDetected) 08/15/23 17:05 Urine Methadone Screen Not Detected (NotDetected) 08/15/23 17:05 Ur Propoxyphene Screen Not Detected (NotDetected) 08/15/23 17:05 Ur Barbiturates Screen Not Detected (NotDetected) 08/15/23 17:05 U Tricyclic Antidepress Not Detected (NotDetected) 08/15/23 17:05 Ur Phencyclidine Scrn Not Detected (NotDetected) 08/15/23 17:05 Ur Amphetamines Screen Not Detected (NotDetected) 08/15/23 17:05 U Methamphetamines Scrn Not Detected (NotDetected) 08/15/23 17:05 U Benzodiazepines Scrn Detected (NotDetected) H 08/15/23 17:05 Urine Cocaine Screen Not Detected (NotDetected) 08/15/23 17:05 U Marijuana (THC) Screen Not Detected (NotDetected) 08/15/23 17:05 SARS-CoV-2 (PCR) Not Detected (Not Detectd) 08/15/23 19:39 08/16/23 08:49 IDENTIFYING DATA: Patient is a , unemployed, 53-year-old male who is presenting with suicidal ideation and alcohol use. HPI: Patient was brought into the ED by police due to making suicidal statements while intoxicated on alcohol. Police stated he told them he would wrap his car around a tree and also that he would attempt to purchase a gun and shoot himself while his son was at school. Per petition, while the patient was intoxicated, he also asked police and medical staff to kill him stating "I want to be ". Patient is calm on interview today. He says he has been drinking 0.5 pint Sutter twice a week until he blacks out. He states that the drinking is an avoidance mechanism from his negative thoughts. He reports not drinking every night but that drinking has become his aide when he has anxious, hopeless, and helpless thoughts. Patient reports having numerous concerns about being unable to afford housing, concerns about homelessness, etc. He states that these are all unfounded concerns but that they can be overwhelming at times. He endorses having a history of anxiety that began when he was in his teens and that it improved significantly while being on Paxil. He states that at one point he was so fearful he was unable to leave his home. He currently endorses poor concentration, fatigue from worrying about fears, feeling restless, having trouble relaxing, and feeling on edge. Patient also endorses feeling depressed over the past few years. Stressors include abruptly leaving him in 2019 resulting divorce, recent breakup with girlfriend, and lack of employment. He denies a significant history of depression prior to 2019. He currently endorses feelings of guilt, anhedonia, decreased energy, very poor concentration, and trouble sleeping. He reports increased appetite and says he eats well. He states that his primary care provider started prescribing him Prozac this summer in 2022. Since he has been on Prozac (taking it at night), he reports having vivid dreams and having trouble staying asleep. Despite being on Prozac, he states that he has been experiencing suicidal ideation worsened significantly last night. He endorses having contemplated shooting himself with a gun but said that lack of access prevented him from acting on this thought. Today, he is concerned by such a thought and notes his engagement in treatment. He reports only have 1 day of improved mood and energy occasionally but otherwise has been experiencing a low mood. Naeem denies symptoms consistent with dileep. He denies psychotic symptoms including auditory and visual hallucinations. He denies having access to firearms. He denies homicidal ideation, as asked and assessed. He denies current suicidal ideation but endorses having recent suicidal ideation with plan to shoot himself last night. PSYCH HX: Previous psychiatrist: Denies Therapist: Denies Past tx: Paxil - was on for a few months for anxiety and says it was very helpful and he took himself off of it. He has been on Prozac since summer 2022 and it helps with feeling anxious but does not help with negative thinking. He would like to shut down his negative thoughts. Hospitalizations: Denies NSSI: Denies SA: Denies PMH: Denies chronic medical issues except psoriasis (gets injections of Cosentyx and uses Kenalog cream) ALLERGIES: Vancomycin PCP: Dr. Sweet Head injuries: Denies Seizures: Denies SUBSTANCE HX: Alcohol: At a peak, in 2019 he was drinking fifth of Sutter per week. Tobacco: 1ppd Cannabis: Denies. Reports experiencing paranoia Denies using other substances SOCIAL/LEGAL HX: Patient reports having been raised in a big family. He reports being close to his family. He says he was for 20 years and is now after his left in 2019. He has been dating but his girlfriend broke up with him last week. He has 3 children. 13 year old son who is staying with his sister right now (patient says he never drinks around him), 16 year old daughter is staying with patient's sister. 20 year old daughter has moved away. 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 He is very musically inclined and he is in a band. He enjoys playing numerous instruments, including guitar, percussion, etc. FAM PSYCH HX: Father and paternal grandfather - alcohol use Mother and maternal grandmother - depression Suicide attempts: Daughter MENTAL STATUS EXAM: General Appearance: Patient appears to be stated age is alert, directable, and attempts to cooperate. Patient appears to have poor hygiene and grooming. Disheveled Behavior: Patient is seated without any agitated behavior. Calm Speech: Patient's speech is fluent and nonpressured. Interrupts often Mood/Affect: Patient reports their mood is depressed, affect is congruent and constricted. Suicidality/Homicidality: Patient denies having any homicidal ideation intent or plan. Denies any current suicidal ideation intent or plan Perceptions: Patient denies any visual hallucinations and denies any auditory hallucinations Though content/process: There is no evidence of any delusional thought content and thought process is linear and goal-directed. Memory and concentration: AOX3, decreased attention to interview Judgment and insight: Fair and seeking treatment STRENGTHS/WEAKNESSES: Strengths are engagement in treatment and social support. Weakness is comorbid substance use INTELLECT: average IMPRESSIONS: Dysthymia Generalized Anxiety Disorder Alcohol use disorder, abuse, in withdrawal PLAN: -Patient is admitted under voluntary status to MHU for stabilization of psychiatric symptoms and safety. Patient signed adult voluntary form and medication consent and is placed in patient's chart. -Medications: - Stop Prozac and start Paxil 20 mg qHS for low mood and anxiety - Start trazodone 25 mg qHS PRN for sleep - CIWA protocol with Ativan for alcohol withdrawal - Folate, thiamin, and MVA -Patient was counselled on substance abuse and desired to cut back on use. Motivational interviewing. -Patient was informed of the risks, benefits and side effects of the medication and patient verbally consented to taking the medications. Patient signed med consent form and was placed in chart. -Internal Medicine consult to perform medical evaluation and physical. -SW on board for discharge planning. Encourage patient to participate in groups to work on coping skills. 08/16/23 09:01 08/16/23 09:47
[2023-08-16 11:00] LABS: Basophils % (A) 1 %; Eosinophils # (A) 0.4 k/uL (0-0.7); Eosinophils % (A) 5 %; HCT 44.1 % (39.0-53.0); Lymphocytes # (A) 2.3 k/uL (1.0-4.8); Lymphocytes % (A) 27 %; MCV 93.9 fL (80.0-100.0); Mean Platelet Volume 8.2; Monocytes # (A) 0.7 k/uL (0-1.0); Monocytes % (A) 8 %; Neutrophils # (A) 4.7 k/uL (1.3-7.7); Neutrophils % (A) 56 %; Platelet Count 414 k/uL (150-450); RBC 4.69 m/uL (4.30-5.90); RDW 12.6 % (11.5-15.5); WBC 8.4 k/uL (3.8-10.6)
[2023-08-16 11:27] LABS: ALT 21 U/L (4-49); AST 30 U/L (17-59); African American GFR (CKD) >90 (>60 ml/min/1.73 sqM); Albumin 3.6 g/dL (3.5-5.0); Alkaline Phosphatase 78 U/L (38-126); Anion Gap 8 mmol/L; Blood Urea Nitrogen 20 mg/dL (9-20); Calcium 8.9 mg/dL (8.4-10.2); Carbon Dioxide 27 mmol/L (22-30); Chloride 107 mmol/L (98-107); Glucose 92 mg/dL (74-99); Non-African American GFR(CKD) >90 (>60 ml/min/1.73 sqM); Potassium 4.5 mmol/L (3.5-5.1); Sodium 142 mmol/L (137-145); Total Bilirubin 0.4 mg/dL (0.2-1.3); Total Protein 6.1 g/dL (6.3-8.2)
[2023-08-16] MEDS: NICOTINE 14MG/24HR PATCH TRANSDERM SCH (12:55)
[2023-08-16] MEDS: FOLIC ACID 1 MG TAB PO SCH (12:56)
[2023-08-16] MEDS: MULTIVITAMINS, THERA 1 EACH TAB PO SCH (12:56)
[2023-08-16] MEDS: TRIAMCINOLONE 0.1% CREAM 80 GM TUBE TOPICAL SCH ×2 (12:56→21:26)
[2023-08-16] MEDS: THIAMINE 100 MG TAB PO SCH (12:57)
[2023-08-16 14:28] VITALS: BMI 17.9
[2023-08-16] MEDS: PARoxetine 20 MG TAB PO SCH (21:25)
[2023-08-16 23:04] LABS: Chol/HDL Ratio 3.91 Ratio; LDL Cholesterol,Calculated 116.9 mg/dL (0.0-131.0)
[2023-08-17] MEDS: THIAMINE 100 MG TAB PO SCH (08:42)
[2023-08-17] MEDS: MULTIVITAMINS, THERA 1 EACH TAB PO SCH (08:42)
[2023-08-17] MEDS: TRIAMCINOLONE 0.1% CREAM 80 GM TUBE TOPICAL SCH ×2 (08:42→21:32)
[2023-08-17] MEDS: NICOTINE 14MG/24HR PATCH TRANSDERM SCH (08:42)
[2023-08-17] MEDS: FOLIC ACID 1 MG TAB PO SCH (08:42)
--- NOTE | 2023-08-17 12:34 | P.PN ---
Progress Note - Text Progress Note Date: 08/17/23 Interval history Patient was seen bedside this morning. He continues to have poor attention and interrupts often during the conversation. He states that he looked over and read the ABCs of CBT that was provided to him yesterday. While discussing the therapeutic strategy listed there, patient repeatedly stated that he did not want to be hospitalized much longer and wanted to be discharged. However, he admits that his mood today is "anxious ". He reports recurrent intrusive thoughts about fears that he has. At this time, his fears include not being able to pay rent and care for his son. Attempted to discuss this using CBT but patient was quite concrete and was perseverative on the emotion of anxiety and on medication management. He states that since beginning Paxil, he has been feeling significantly better overall. Discussed the role of medication assisted treatment for alcohol use and he was agreeable with being started on naltrexone. He reports trouble falling asleep and states that today he feels low energy. He endorses fair appetite. He denies suicidal ideation and homicidal ideation, and auditory and visual hallucinations, as asked and assessed. He reports tolerating the medications well and denies any side effects. Mental status exam: General Appearance: Patient appears to be stated age is alert, directable, and attempts to cooperate. Patient appears to have poor hygiene and grooming. Disheveled Behavior: Patient is seated without any agitated behavior. Fidgeting Speech: Patient's speech is fluent and nonpressured. Interrupts often Mood/Affect: Patient reports their mood is "anxious", affect is congruent and constricted. Suicidality/Homicidality: Patient denies having any homicidal ideation intent or plan. Denies any current suicidal ideation intent or plan Perceptions: Patient denies any visual hallucinations and denies any auditory hallucinations Though content/process: There is no evidence of any delusional thought content and thought process is linear and goal-directed. Fixated on meds, worries, and discharge Memory and concentration: AOX3, decreased attention to interview Judgment and insight: Fair and seeking treatment Vital Signs Temp 98.1 F 08/17/23 07:04 Pulse 71 08/17/23 07:04 Resp 14 08/17/23 07:04 BP 114/66 08/17/23 07:04 Pulse Ox 98 08/15/23 22:56 FiO2 Intake & Output 08/16/23 08/17/23 08/17/23 18:59 06:59 18:59 Weight 64.9 kg 64.9 kg Assessment: Dysthymia Generalized Anxiety Disorder Alcohol use disorder, abuse PLAN: -Patient is admitted under voluntary status to MHU for stabilization of psychiatric symptoms and safety. Patient signed adult voluntary form and m edication consent and is placed in patient's chart. -Medications: - Paxil 20 mg qHS for low mood and anxiety - trazodone 25 mg qHS MATIAS for sleep - Start Naltrexone 50 mg daily for alcohol use - CIWA protocol - scoring 0s- may discontinue - Folate, thiamin, and MVA - Ativan PRN for anxiety/agitation -Patient was counselled on substance abuse and desired to cut back on use. Motivational interviewing. -Patient was informed of the risks, benefits and side effects of the medication and patient verbally consented to taking the medications. Patient signed med consent form and was placed in chart. -Internal Medicine consult to perform medical evaluation and physical. -SW on board for discharge planning. Encourage patient to participate in groups to work on coping skills.
[2023-08-17] MEDS: NALTREXONE HCL 50 MG TAB PO SCH (13:08)
[2023-08-17] MEDS: traZODone HCL 50 MG TAB PO SCH (21:25)
[2023-08-17] MEDS: PARoxetine 20 MG TAB PO SCH (21:26)
[2023-08-18] MEDS: NALTREXONE HCL 50 MG TAB PO SCH (07:37)
[2023-08-18] MEDS: NICOTINE 14MG/24HR PATCH TRANSDERM SCH (08:15)
[2023-08-18] MEDS: FOLIC ACID 1 MG TAB PO SCH (08:16)
[2023-08-18] MEDS: MULTIVITAMINS, THERA 1 EACH TAB PO SCH (08:16)
[2023-08-18] MEDS: THIAMINE 100 MG TAB PO SCH (08:16)
[2023-08-18] MEDS: TRIAMCINOLONE 0.1% CREAM 80 GM TUBE TOPICAL SCH ×3 (10:01→21:03)
--- NOTE | 2023-08-18 11:28 | P.PN ---
Progress Note - Text Progress Note Date: 08/18/23 Interval History: Patient was seen in his room, and agreeable to speak to typewriter assembly and parts inspector in the office. He states that he is 'ok' today, and offers information that he uses alcohol as a form of coping, and says 'stupid stuff' while under the influence. Mood and anxiety are improving however stated that he was feelign fairly depressed before coming into the hospital. Spoke with patient about compliance with medication, and how compliance could help him. Patient states that he slept well last night. Patient is very fidgety during interview. Discontinued Naltrexone due to making his psoriasis flare. Focused on discharge. Discussed MHT, and how it works on the unit. Encouraged patient to attend groups. Spoke to patient about rehab, and patient declined the need for it, because "he's not an alcoholic", states that he will attend AA meeting upon discharge. He denies suicidal ideation and homicidal ideation, and auditory and visual hallucinations. He reports tolerating the medications well and denies any side effects. Mental Status Exam: General Appearance: Patient appears to be stated age is alert, directable, and attempts to cooperate. Patient appears to have poor hygiene and grooming. Tall, thin build, balding, facial hair. Disheveled, dressed in street clothes. Behavior: Patient is seated without any agitated behavior. Fidgeting. Focused on discharge Speech: Patient's speech is fluent and nonpressured. Mood/Affect: Patient reports their mood is "a bit better", affect is congruent and constricted. Suicidality/Homicidality: Patient denies having any homicidal ideation intent or plan. Denies any current suicidal ideation intent or plan Perceptions: Patient denies any visual hallucinations and denies any auditory hallucinations Though content/process: There is no evidence of any delusional thought content and thought process is linear and goal-directed. Memory and concentration: AOX3 for the purpose of the interview. Judgment and insight: Fair Assessment Major depressive disorder without psychotic features Generalized Anxiety Disorder Alcohol use disorder, abuse Plan: -Patient is admitted under voluntary status to MHU for stabilization of psychiatric symptoms and safety. Patient signed adult voluntary form and medication consent and is placed in patient's chart. -Medications: - changed Paxil 20 mg qd for low mood and anxiety - trazodone 25 mg qHS MATIAS for sleep - discontinue Naltrexone 50 mg daily for alcohol use due to a/e reaction of making his psoriasis worst. - Folate, thiamin, and MVA - Ativan PRN for anxiety/agitation. -SW on board for discharge planning. Encourage patient to participate in groups to work on coping skills. refusing rehab. Possible discharge Friday, if patient continues to improve.
[2023-08-18] MEDS: PARoxetine 20 MG TAB PO SCH (11:39)
[2023-08-18] MEDS: traZODone HCL 50 MG TAB PO SCH (21:02)
[2023-08-19] MEDS: MULTIVITAMINS, THERA 1 EACH TAB PO SCH (09:21)
[2023-08-19] MEDS: FOLIC ACID 1 MG TAB PO SCH (09:21)
[2023-08-19] MEDS: NICOTINE 14MG/24HR PATCH TRANSDERM SCH (09:21)
[2023-08-19] MEDS: PARoxetine 20 MG TAB PO SCH (09:22)
[2023-08-19] MEDS: TRIAMCINOLONE 0.1% CREAM 80 GM TUBE TOPICAL SCH ×2 (09:22→22:04)
[2023-08-19] MEDS: THIAMINE 100 MG TAB PO SCH (09:22)
--- NOTE | 2023-08-19 10:09 | P.PN ---
Progress Note - Text Progress Note Date: 08/19/23 Interval History: Patient was seen in group, and agreeable to speak to medical underwriter in the office. He states that he is 'much better' today, Patient claims to be sleeping well at night. Patient states appetite is good. Spoke to patient about rehab, and patient declined the need for it, because "he's not an alcoholic", states that he will attend AA meeting upon discharge. 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 Asked to use his phone to check a message from the tie buyer. Will talk to social work to help him with this. He denies suicidal ideation and homicidal ideation, and auditory and visual hallucinations. He reports tolerating the medications well and denies any side effects. Mental Status Exam: General Appearance: Patient appears to be stated age is alert, directable, and attempts to cooperate. Patient appears to have fair hygiene and grooming. Tall, thin build, balding, facial hair. dressed in street clothes. Behavior: Patient is seated without any agitated behavior. Speech: Patient's speech is fluent and nonpressured. Mood/Affect: Patient reports their mood is "better", affect is congruent and constricted. Suicidality/Homicidality: Patient denies having any homicidal ideation intent or plan. Denies any current suicidal ideation intent or plan Perceptions: Patient denies any visual hallucinations and denies any auditory hallucinations Though content/process: There is no evidence of any delusional thought content and thought process is linear and goal-directed. Memory and concentration: AOX3 for the purpose of the interview. Judgment and insight: Fair Assessment Major depressive disorder without psychotic features Generalized Anxiety Disorder Alcohol use disorder, abuse Plan: -Patient is admitted under voluntary status to MHU for stabilization of psychiatric symptoms and safety. Patient signed adult voluntary form and medication consent and is placed in patient's chart. -Medications: - Paxil 20 mg qd for low mood and anxiety - trazodone 25 mg qHS MATIAS for sleep. - Folate, thiamin, and MVA - Ativan PRN for anxiety/agitation. -SW on board for discharge planning. Encourage patient to participate in groups to work on coping skills. refusing rehab, but states he will attend AA upon discharge. Possible discharge Friday, if patient continues to improve.
[2023-08-19] MEDS: traZODone HCL 50 MG TAB PO SCH (22:03)
[2023-08-20 07:33] VITALS: BP 114/72; PULSE 60; RESP 14; TEMP 98.3
[2023-08-20] MEDS: PARoxetine 20 MG TAB PO SCH (08:59)
[2023-08-20] MEDS: TRIAMCINOLONE 0.1% CREAM 80 GM TUBE TOPICAL SCH (08:59)
[2023-08-20] MEDS: MULTIVITAMINS, THERA 1 EACH TAB PO SCH (08:59)
[2023-08-20] MEDS: THIAMINE 100 MG TAB PO SCH (08:59)
[2023-08-20] MEDS: FOLIC ACID 1 MG TAB PO SCH (08:59)
[2023-08-20] MEDS: NICOTINE 14MG/24HR PATCH TRANSDERM SCH (08:59)
--- NOTE | 2023-08-20 10:04 | P.DS ---
Providers Date of admission: 08/15/23 22:21 Expected date of discharge: 08/20/23 Attending physician: Leroy Ferraro MD Consults: 08/15/23 22:29 Consult Physician Routine Consulting Provider: Dewayne Sweet Consult Reason/Comments: H&P for mental health admission Do you want consulting provider notified?: Yes, Notify in am Primary care physician: Dewayne Sweet - Discharge Diagnosis(es) (1) Major depressive disorder without psychotic features Current Visit: Yes Status: Acute Priority: High (2) Generalized anxiety disorder Current Visit: Yes Status: Acute Priority: High (3) Alcohol use disorder Current Visit: Yes Status: Acute Priority: Medium Hospital Course: Admission HPI: Admission note was completed by Dr Escalona. Patient was brought into the ED by police due to making suicidal statements while intoxicated on alcohol. Police stated he told them he would wrap his car around a tree and also that he would attempt to purchase a gun and shoot himself while his son was at school. Per petition, while the patient was intoxicated, he also asked police and medical staff to kill him stating "I want to be ". Patient is calm on interview today. He says he has been drinking 0.5 pint [place] twice a week until he blacks out. He states that the drinking is an avoidance mechanism from his negative thoughts. He reports not drinking every night but that drinking has become his aide when he has anxious, hopeless, and helpless thoughts. Patient reports having numerous concerns about being unable to afford housing, concerns about homelessness, etc. He states that these are all unfounded concerns but that they can be overwhelming at times. He endorses having a history of anxiety that began when he was in his teens and that it improved significantly while being on Paxil. He states that at one point he was so fearful he was unable to leave his home. He currently endorses poor concentration, fatigue from worrying about fears, feeling restless, having trouble relaxing, and feeling on edge. Patient also endorses feeling depressed over the past few years. Stressors include abruptly leaving him in 2019 resulting divorce, recent breakup with girlfriend, and lack of employment. He denies a significant history of depression prior to 2019. He currently endorses feelings of guilt, anhedonia, decreased energy, very poor concentration, and trouble sleeping. He reports increased appetite and says he eats well. He states that his primary care provider started prescribing him Prozac this summer in 2022. Since he has been on Prozac (taking it at night), he reports having vivid dreams and having trouble staying asleep. Despite being on Prozac, he states that he has been experiencing suicidal ideation worsened significantly last night. He endorses having contemplated shooting himself with a gun but said that lack of access prevented him from acting on this thought. Today, he is concerned by such a thought and notes his engagement in treatment. He reports only have 1 day of improved mood and energy occasionally but otherwise has been experiencing a low mood. Naeem denies symptoms consistent with dileep. He denies psychotic symptoms including auditory and visual hallucinations. He denies having access to firearms. He denies homicidal ideation, as asked and assessed. He denies current suicidal ideation but endorses having recent suicidal ideation with plan to shoot himself last night. Hospital course: Upon admission to the unit patient was directable and agreeable to commence treatment and signed adult voluntary form. Patient got along well with other patients on the unit and followed unit protocol. Patient was compliant with the medications and denied any side effects throughout hospital course. Patient was started on Paxil 20 mg daily for mood/anxiety, trazodone 25 mg daily at bedtime for sleep/mood. Patient was also on CIWA protocol with when necessary Ativan for alcohol withdrawal. He was offered in decreasing medications however declined him at this time. Patient spoke of his stressors and engaged in therapy both group and individual. Patient was also seen by medical team for history and physical exam. Throughout the course of the hospitalization patient gradually improved with regards to mood, anxiety, sleep and became more future oriented with improved insight and judgment. On the day of discharge patient denied any suicidal or homicidal ideations intent or plan denied any auditory or visual hallucinations. Patient endorsed wanting to live for his health and family. The patient denied any access to guns or weapons. Patient denied any paranoia and did not endorse any delusions. Patient does have a significant history of substance abuse and was counseled on abstaining from all substances including alcohol and marijuana. Patient was offered however declined inpatient substance-abuse rehab. Patient elected to do outpatient substance use treatment program through [facility]. Patient was also counseled on the medications and need for regular compliance and was encouraged to follow-up with their outpatient appointment for mental health and also for primary care. Mental status exam: General Appearance: Patient appears to be tall, thin, stated age is alert, pleasant, and cooperative. Patient is in no acute distress and has improved hygiene and grooming Behavior: Patient is calmly seated without any agitated behavior. Speech: Patient's speech is fluent and nonpressured. Mood/Affect: Patient reports their mood is "good", affect is congruent and euthymic. Suicidality/Homicidality: Patient denies having any suicidal or homicidal ideation intent or plan. Perceptions: Patient denies any auditory or visual hallucinations. Though content/process: There is no evidence of any delusional thought content and thought process is linear and goal-directed. more future oriented Memory and concentration: AOX3, grossly intact for the purposes of this session. Can spell "WORLD" backwards correctly. Judgment and insight: improved with guarded prognosis Impression: Major depressive disorder without psychotic features Generalized Anxiety Disorder Alcohol use disorder Plan: -Continue with discharge today as patient has improved and stabilized psychiatrically and is not currently an imminent threat to himself and/or others. Patient will remain at chronically elevated risk for harm to self and/or others due to his substance abuse. -Continue medications: Paxil 20 mg daily for mood/anxiety, trazodone 25 mg daily at bedtime when necessary for sleep. Patient declined any anti-craving medications or alcohol abuse. -Patient was counseled on the need for medication compliance and appropriate follow-up at mental health and also primary care for medical issues. Patient verbalized understanding and agreed. -Social work to arrange for and conduct family meeting to ensure safety upon discharge and answer any questions/concerns. Social work also to arrange for patients follow up appointments for psychiatric care along with follow up with primary care provider. -Patient counseled on abstaining from recreational drugs and marijuana and alcohol. Was informed/educated on the adverse effects on their physical and mental health. Patient verbally agreed and understood. Patient was offered substance abuse treatment however declined at this time. -Patient was instructed to return to the hospital or seek immediate medical care if their psychiatric or medical symptoms do worsen or reoccur. Allergies Allergy/AdvReac Type Severity Reaction Status Date / Time vancomycin Allergy Intermediate Rash/Hives Verified 08/17/23 21:41 naltrexone From [facility] AdvReac Intermediate Rash/Hives Verified 08/17/23 21:42 Laboratory Results WBC 8.4 k/uL (3.8-10.6) 08/16/23 08:13 RBC 4.69 m/uL (4.30-5.90) 08/16/23 08:13 Hgb 15.0 gm/dL (13.0-17.5) 08/16/23 08:13 Hct 44.1 % (39.0-53.0) 08/16/23 08:13 MCV 93.9 fL (80.0-100.0) 08/16/23 08:13 MCH 32.0 pg (25.0-35.0) 08/16/23 08:13 MCHC 34.0 g/dL (31.0-37.0) 08/16/23 08:13 RDW 12.6 % (11.5-15.5) 08/16/23 08:13 Plt Count 414 k/uL (150-450) 08/16/23 08:13 MPV 8.2 08/16/23 08:13 Neutrophils % 56 % 08/16/23 08:13 Lymphocytes % 27 % 08/16/23 08:13 Monocytes % 8 % 08/16/23 08:13 Eosinophils % 5 % 08/16/23 08:13 Basophils % 1 % 08/16/23 08:13 Neutrophils # 4.7 k/uL (1.3-7.7) 08/16/23 08:13 Lymphocytes # 2.3 k/uL (1.0-4.8) 08/16/23 08:13 Monocytes # 0.7 k/uL (0-1.0) 08/16/23 08:13 Eosinophils # 0.4 k/uL (0-0.7) 08/16/23 08:13 Basophils # 0.0 k/uL (0-0.2) 08/16/23 08:13 Sodium 142 mmol/L (137-145) 08/16/23 08:13 Potassium 4.5 mmol/L (3.5-5.1) 08/16/23 08:13 Chloride 107 mmol/L (98-107) 08/16/23 08:13 Carbon Dioxide 27 mmol/L (22-30) 08/16/23 08:13 Anion Gap 8 mmol/L 08/16/23 08:13 BUN 20 mg/dL (9-20) 08/16/23 08:13 Creatinine 0.73 mg/dL (0.66-1.25) 08/16/23 08:13 Est GFR (CKD-EPI)AfAm >90 (>60 ml/min/1.73 sqM) 08/16/23 08:13 Est GFR (CKD-EPI)NonAf >90 (>60 ml/min/1.73 sqM) 08/16/23 08:13 Glucose 92 mg/dL (74-99) 08/16/23 08:[address] Glu mg/dL 126 mg/dL 08/16/23 08:13 Hemoglobin A1c 6.0 % (<=6.0) 08/16/23 08:13 Calcium 8.9 mg/dL (8.4-10.2) 08/16/23 08:13 Total Bilirubin 0.4 mg/dL (0.2-1.3) 08/16/23 08:13 AST 30 U/L (17-59) 08/16/23 08:13 ALT 21 U/L (4-49) 08/16/23 08:13 Alkaline Phosphatase 78 U/L (38-126) 08/16/23 08:13 Total Protein 6.1 g/dL (6.3-8.2) L 08/16/23 08:13 Albumin 3.6 g/dL (3.5-5.0) 08/16/23 08:13 Triglycerides 167.00 mg/dL (0.00-149.00) H 08/16/23 08:13 Cholesterol 202.00 mg/dL (0.00-200.00) H 08/16/23 08:13 LDL Cholesterol, Calc 116.9 mg/dL (0.0-131.0) 08/16/23 08:13 VLDL Cholesterol, Calc 33.40 mg/dL (5.00-40.00) 08/16/23 08:13 HDL Cholesterol 51.70 mg/dL (40.00-60.00) 08/16/23 08:13 Cholesterol/HDL Ratio 3.91 Ratio 08/16/23 08:13 TSH 2.050 mIU/L (0.465-4.680) 08/16/23 08:13 Urine Color Yellow 08/15/23 17:05 Urine Appearance Clear (Clear) 08/15/23 17:05 Urine pH 5.0 (5.0-8.0) 08/15/23 17:05 Ur Specific [place] 1.025 (1.001-1.035) 08/15/23 17:05 Urine Protein Negative (Negative) 08/15/23 17:05 Urine Glucose (UA) Negative (Negative) 08/15/23 17:05 Urine Ketones Negative (Negative) 08/15/23 17:05 Urine Blood Negative (Negative) 08/15/23 17:05 Urine Nitrite Negative (Negative) 08/15/23 17:05 Urine Bilirubin Negative (Negative) 08/15/23 17:05 Urine Urobilinogen <0.2 mg/dL (<2.0) 08/15/23 17:05 Ur Leukocyte Esterase Negative (Negative) 08/15/23 17:05 Urine Opiates Screen Not Detected (NotDetected) 08/15/23 17:05 Ur Oxycodone Screen Not Detected (NotDetected) 08/15/23 17:05 Urine Methadone Screen Not Detected (NotDetected) 08/15/23 17:05 Ur Propoxyphene Screen Not Detected (NotDetected) 08/15/23 17:05 Ur Barbiturates Screen Not Detected (NotDetected) 08/15/23 17:05 U Tricyclic Antidepress Not Detected (NotDetected) 08/15/23 17:05 Ur Phencyclidine Scrn Not Detected (NotDetected) 08/15/23 17:05 Ur Amphetamines Screen Not Detected (NotDetected) 08/15/23 17:05 U Methamphetamines Scrn Not Detected (NotDetected) 08/15/23 17:05 U Benzodiazepines Scrn Detected (NotDetected) H 08/15/23 17:05 Urine Cocaine Screen Not Detected (NotDetected) 08/15/23 17:05 U Marijuana (THC) Screen Not Detected (NotDetected) 08/15/23 17:05 SARS-CoV-2 (PCR) Not Detected (Not Detectd) 08/15/23 19:39 Vital Signs Temp 98.3 F 08/20/23 06:52 Pulse 60 08/20/23 06:52 Resp 14 08/20/23 06:52 BP 114/72 08/20/23 06:52 Pulse Ox 98 08/15/23 22:56 FiO2 Patient Condition at Discharge: Stable Plan - Discharge Summary Discharge Rx Participant: Yes New Discharge Prescriptions: New Folic Acid 1 mg PO DAILY tab Nicotine 14Mg/24Hr Patch [Habitrol] 1 patch TRANSDERM DAILY 14 Days #14 patch Thiamine [Vitamin B-1] 100 mg PO DAILY tab traZODone HCL [Desyrel] 25 mg PO HS PRN 30 Days #15 tab PRN Reason: Insomnia Multivitamins, Thera [Multivitamin (formulary)] 1 each PO DAILY tab PARoxetine [Paxil] 20 mg PO DAILY 30 Days #30 tab Continue Triamcinolone 0.1% Cream [Kenalog 0.1% Cream] 1 applic TOPICAL BID Secukinumab [Cosentyx Sensoready (2 Pens)] 300 mg SQ DIRECTED Discontinued hydrOXYzine pamoate [Vistaril] 50 mg PO TID FLUoxetine HCL [PROzac] 20 mg PO DAILY Discharge Medication List Secukinumab [Cosentyx Sensoready (2 Pens)] 300 mg SQ DIRECTED 08/15/23 [History] Triamcinolone 0.1% Cream [Kenalog 0.1% Cream] 1 applic TOPICAL BID 08/15/23 [History] Folic Acid 1 mg PO DAILY tab 08/20/23 [Rx] Multivitamins, Thera [Multivitamin (formulary)] 1 each PO DAILY tab 08/20/23 [Rx] Nicotine 14Mg/24Hr Patch [Habitrol] 1 patch TRANSDERM DAILY 14 Days #14 patch 08/20/23 [Rx] PARoxetine [Paxil] 20 mg PO DAILY 30 Days #30 tab 08/20/23 [Rx] Thiamine [Vitamin B-1] 100 mg PO DAILY tab 08/20/23 [Rx] traZODone HCL [Desyrel] 25 mg PO HS PRN 30 Days #15 tab 08/20/23 [Rx] Follow up Appointment(s)/Referral(s): Dewayne Sweet MD [Primary Care Provider] - 1-2 days Activity/Diet/Wound Care/Special Instructions: Avoid the use of street drugs and alcohol. Take all medications as prescribed. When you are in need of refills on your medications, please contact your medical provider and/or outpatient psychiatrist/provider to have this done. Please go to your scheduled outpatient appointment for aftercare treatment. If symptoms return or become worse, call the crisis line at and/or go to the nearest emergency room for evaluation. National Suicide Hotline 988. Discharge Disposition: HOME SELF-CARE
--- NOTE | 2023-08-22 04:26 | HP ---
HISTORY AND PHYSICAL CHIEF COMPLAINT: Major depression. HISTORY OF PRESENT ILLNESS: This gentleman presented to the emergency room with depression and suicidal thoughts and he was admitted. He is followed through our office and has been treated for psoriasis, anxiety, alcoholism, and major depression. REVIEW OF SYSTEMS: Are present time, he is comfortable with no complaints. Past medical history, family history, personal and social histories reveal that he takes Cosentyx, Vistaril, and Prozac. He is not allergic to any medication. Remainder of the history is unremarkable and can be found in his admitting summary. PHYSICAL EXAMINATION: VITAL SIGNS: Blood pressure is 132/86 with a pulse of 81, respirations of 25, and he is afebrile. GENERAL: Appeared to be well developed, well nourished, and in no acute distress. HEAD, EARS, EYES, NOSE, MOUTH, THROAT: Normal. CHEST: Clear. CARDIAC: Normal. ABDOMEN: Soft and nontender. EXTREMITIES: Normal. IMPRESSION: 1. Major depression. 2. Psoriasis. RECOMMENDATIONS: None. Thank you respectfully, ISMAEL / JOHN: [phone] /
== END 2023-08-20 12:41 | disposition home or self-care (01) | DRG 751 ==
LOC: EC 06:26 → 3MHU 22:21
PROVIDERS: ADMIT Psychiatry & Neurology Psychiatry; ATTEND Psychiatry & Neurology Psychiatry
DX: F32.2 Major depressive disorder, single episode, severe without psychotic features (principal); Z11.52 Encounter for screening for COVID-19; Z28.21 Immunization not carried out because of patient refusal; Z28.310 Unvaccinated for COVID-19; F10.129 Alcohol abuse with intoxication, unspecified; R45.851 Suicidal ideations; Z56.0 Unemployment, unspecified; Z63.5 Disruption of family by separation and divorce; F17.210 Nicotine dependence, cigarettes, uncomplicated; F41.1 Generalized anxiety disorder; L40.9 Psoriasis, unspecified; Z79.899 Other long term (current) drug therapy; Z82.49 Family history of ischemic heart disease and other diseases of the circulatory system
CPT/HCPCS: 80053; 80061; 80306; 81003; 82075; 83036; 84443; 85025; 87635; 96374; 99285